=== PATIENT | female | born 1945 | race African-American/Black ===

== ENCOUNTER 2019-06-24 07:32 | Emergency (ER) | payer SELFPAY ==
[2019-06-24] MEDS ORDERED: ONDANSETRON 4 MG TAB.RAPDIS PO ONE (09:34)
--- NOTE | 2019-06-24 09:39 | ER Document Report ---
ED General - General Chief Complaint: Diarrhea Stated Complaint: ABDOMINAL PAIN Time Seen by Provider: 06/24/19 09:18 Primary Care Provider: VLADIMIR TORO MD [Primary Care Provider] - Follow up as needed Mode of Arrival: Ambulatory Information source: Patient TRAVEL OUTSIDE OF THE [place] IN LAST 30 DAYS: No - HPI Onset: Other - over the last 5 days Onset/Duration: Gradual Quality of pain: Cramping Severity: Mild Pain Level: 1 Associated symptoms: Diarrhea, Nausea, Other - Abdominal Pain Exacerbated by: Denies Relieved by: Denies Similar symptoms previously: No Recently seen / treated by doctor: No Notes: 74 year old female with a history of DM and HTN who has been off her Metformin and Losartan/HCTZ for about a month here for nausea, abdominal cramps, and diarrhea since starting back her medications over the last week. The patient denies fevers, chills, sweats, vomiting, sick contacts, ingestion of uncooked foods, or recent travel outside the [place]. - Related Data Allergies/Adverse Reactions: No Known Allergies Allergy (Verified 06/24/19 07:50) Past Medical History - General Information source: Patient - Social History Smoking Status: Never Smoker Frequency of alcohol use: None Drug Abuse: None Family History: Reviewed & Not Pertinent Patient has suicidal ideation: No Patient has homicidal ideation: No - Past Medical History Cardiac Medical History: Reports: Hx Hypertension Endocrine Medical History: Reports: Hx Diabetes Mellitus Type 1 Review of Systems - Review of Systems Constitutional: No symptoms reported EENT: No symptoms reported Cardiovascular: No symptoms reported Respiratory: No symptoms reported Gastrointestinal: Abdominal pain, Diarrhea, Nausea Genitourinary: No symptoms reported Female Genitourinary: No symptoms reported Musculoskeletal: No symptoms reported Skin: No symptoms reported Hematologic/Lymphatic: No symptoms reported Neurological/Psychological: No symptoms reported Physical Exam - Vital signs Vitals: Temp Pulse Resp BP Pulse Ox 98.4 F 69 18 168/116 H 100 06/24/19 07:43 06/24/19 07:43 06/24/19 07:43 06/24/19 07:43 06/24/19 07:43 - Notes Notes: GENERAL: Well-appearing, well-nourished and in no acute distress. HEAD: Atraumatic, normocephalic. EYES: Pupils equal round and reactive to light, extraocular movements intact, sclera anicteric, conjunctiva are normal. ENT: TMs normal, nares patent, oropharynx clear without exudates. Moist mucous membranes. NECK: Normal range of motion, supple without lymphadenopathy or JVD. LUNGS: Breath sounds clear to auscultation bilaterally and equal. No wheezes rales or rhonchi. HEART: Regular rate and rhythm without murmurs, rubs or gallops. ABDOMEN: Soft, nontender, normoactive bowel sounds. No guarding, no rebound. No masses appreciated. EXTREMITIES: Normal range of motion, no pitting or edema. No clubbing or cyanosis. NEUROLOGICAL: Cranial nerves II through XII grossly intact. Normal speech, normal gait. PSYCH: Normal mood, normal affect. SKIN: Warm, Dry, normal turgor, no rashes or lesions noted. Course - Re-evaluation Re-evalutation: 06/24/19 09:37 The patient is here for nausea, abdominal cramping, and diarrhea in the setting of starting back on Metformin and Losartan/HCTZ. The patient looks well here in the ER and she says she only has some imld nausea at the moment. She has no abdominal tenderness on exam. Patient's POC glucose is 121. Will treat patient with ODT zofran. She was told this is likely a side effect of metformin although a viral illness is also possible. 06/24/19 09:42 Patient's BP was high in the ER but the patient admits she has not been taking her newly prescribed Losartan/HCTZ. She was told to start back today. - Vital Signs Vital signs: Temp Pulse Resp BP Pulse Ox 98.4 F 69 18 168/116 H 100 06/24/19 07:43 06/24/19 07:43 06/24/19 07:43 06/24/19 07:43 06/24/19 07:43 Discharge - Discharge Clinical Impression: Nausea Diarrhea Qualifiers: Diarrhea type: unspecified type Qualified Code(s): R19.7 - Diarrhea, unspecified Disposition: HOME, SELF-CARE Instructions: Abdominal Pain ([facility]), Diarrhea, Nonspecific ([facility]), Nausea or Vomiting, Nonspecific ([facility]) Additional Instructions: Eat a bland diet until your symptoms improve. Use Zofran as needed for nausea, Follow up with your primary care doctor. Prescriptions: Ondansetron [Zofran Odt 4 mg Tablet] 1 tab PO Q8H PRN #15 tab.rapdis PRN Reason: For Nausea/Vomiting Referrals: VLADIMIR TORO MD [Primary Care Provider] - Follow up as needed
[2019-06-24 10:14] VITALS: BP 160/104
== END 2019-06-24 10:16 | disposition home or self-care (01) ==
LOC: ER 07:32
DX: R11.0 Nausea (principal); R19.7 Diarrhea, unspecified; R10.9 Unspecified abdominal pain; Z79.84 Long term (current) use of oral hypoglycemic drugs; Z79.899 Other long term (current) drug therapy; I10 Essential (primary) hypertension; E10.9 Type 1 diabetes mellitus without complications
CPT/HCPCS: 99284; 82962; S0119

== ENCOUNTER 2020-04-04 17:47 | Emergency (ER) | payer SELFPAY ==
--- NOTE | 2020-04-04 18:14 | ER Document Report ---
ED Medical Screen (RME) - General Chief Complaint: Dizziness Stated Complaint: DIZZINESS Time Seen by Provider: 04/04/20 18:05 Primary Care Provider: VLADIMIR TORO MD [Primary Care Provider] - Follow up as needed Mode of Arrival: Wheelchair Information source: Patient, Relative - Daughter Notes: 75-year-old female patient presents emergency department chief complaint of onset of generalized weakness and dizziness. 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 She thinks she may have overworked herself. She denies any chest pain or shortness of breath. The episode occurred right before arrival. She states she still does not feel well. She denies any unilateral weakness. Patient alert, oriented, answering all questions appropriately. No focal neurological deficits on exam. I have greeted and performed a rapid initial assessment of this patient. A comprehensive ED assessment and evaluation of the patient, analysis of test results and completion of the medical decision making process will be conducted by additional ED providers. I have specifically instructed the patient or family members with the patient to immediately return to any nursing staff should anything change in the patient's condition or with their chief complaint. TRAVEL OUTSIDE OF THE [place] IN LAST 30 DAYS: No - Related Data Allergies/Adverse Reactions: Penicillins Allergy (Verified 04/04/20 18:11) Past Medical History - Past Medical History Cardiac Medical History: Reports: Hx Hypertension Endocrine Medical History: Reports: Hx Diabetes Mellitus Type 1 Physical Exam - Vital signs Vitals: Temp Pulse Resp BP Pulse Ox 97.7 F 58 L 18 151/67 H 100 04/04/20 18:04/04/20 18:01 04/04/20 18:01 04/04/20 18:01 04/04/20 18:01 Course - Vital Signs Vital signs: Temp Pulse Resp BP Pulse Ox 97.7 F 58 L 18 151/67 H 100 04/04/20 18:01 04/04/20 18:01 04/04/20 18:01 04/04/20 18:01 04/04/20 18:01 Doctor's Discharge - Discharge Referrals: VLADIMIR TORO MD [Primary Care Provider] - Follow up as needed
--- NOTE | 2020-04-04 18:42 | RADIOLOGY REPORT (SQ) ---
EXAM DESCRIPTION: CHEST SINGLE VIEW IMAGES COMPLETED DATE/TIME: 04/04/2020 6:21 pm REASON FOR STUDY: weakness COMPARISON: None. EXAM PARAMETERS: NUMBER OF VIEWS: One view. TECHNIQUE: Single frontal radiographic view of the chest acquired. RADIATION DOSE: NA LIMITATIONS: None. FINDINGS: LUNGS AND PLEURA: No consolidation, pneumothorax or pleural effusion. MEDIASTINUM AND HILAR STRUCTURES: No masses. Contour normal. HEART AND VASCULAR STRUCTURES: Heart normal in size. Normal vasculature. BONES: No acute findings. HARDWARE: None in the chest. OTHER: There is elevation of the left hemidiaphragm. An air-fluid level is noted at the stomach. IMPRESSION: 1. No acute radiographic finding in the chest. 2. Elevation of the left hemidiaphragm. Air-fluid level at the stomach. TECHNICAL DOCUMENTATION: JOB ID: [id number] 2010 [employer]- All Rights Reserved Reading location - IP/workstation name: [email or web address]
[2020-04-04 18:55] LABS: ABSOLUTE LYMPHOCYTES (AUTO) 1.7 10^3/uL (0.5-4.7); ABSOLUTE MONOCYTES (AUTO) 0.4 10^3/uL (0.1-1.4); ABSOLUTE NEUT (AUTO) 4.1 10^3/uL (1.7-8.2); BASOPHILS % (AUTO) 0.3 % (0-2); EOSINOPHILS % (AUTO) 0.5 % (0-6); HEMATOCRIT 33.9 % (36.0-47.0); HEMOGLOBIN 11.2 g/dL (12.0-15.5); LYMPHOCYTES % (AUTO) 27.4 % (13-45); MEAN CORPUSCULAR HEMOGLOBIN 28.1 pg (27.0-33.4); MEAN CORPUSCULAR VOLUME 85 fl (80-97); MONOCYTES % (AUTO) 6.2 % (3-13); PLATELET COUNT 183 10^3/uL (150-450); RED BLOOD COUNT 3.99 10^6/uL (3.72-5.28); SEGMENTED NEUTROPHILS % (AUTO) 65.6 % (42-78); TOTAL CELLS COUNTED % (AUTO) 100 %; WHITE BLOOD COUNT 6.3 10^3/uL (4.0-10.5)
[2020-04-04 19:21] LABS: ALBUMIN 4.6 g/dL (3.5-5.0); ALKALINE PHOSPHATASE 54 U/L (38-126); ANION GAP 12 (5-19); ASPARTATE AMINO TRANSFERASE 26 U/L (14-36); BILIRUBIN,DIRECT 0.2 mg/dL (0.0-0.4); BILIRUBIN,TOTAL 0.5 mg/dL (0.2-1.3); BLOOD UREA NITROGEN 23 mg/dL (7-20); CALCIUM 9.6 mg/dL (8.4-10.2); CARBON DIOXIDE 28 mmol/L (22-30); CHLORIDE 98 mmol/L (98-107); GLUCOSE 163 mg/dL (75-110); POTASSIUM 3.6 mmol/L (3.6-5.0); TOTAL PROTEIN 8.2 g/dL (6.3-8.2)
[2020-04-04 21:01] LABS: APPEARANCE,URINE CLEAR; BILIRUBIN,URINE NEGATIVE (NEGATIVE); COLOR,URINE YELLOW; GLUCOSE, URINE NEGATIVE (NEGATIVE); KETONES,URINE NEGATIVE (NEGATIVE); PROTEIN,URINE NEGATIVE (NEGATIVE); URINE SPECIFIC GRAVITY 1.016
--- NOTE | 2020-04-04 22:02 | ER Document Report ---
Entered by ANNEL DUGAN SCRIBE 04/04/20 [id number] Acting as scribe for:RADHA BAUER, DO ED General - General Chief Complaint: General Weakness Stated Complaint: DIZZINESS Time Seen by Provider: 04/04/20 18:05 Primary Care Provider: VLADIMIR TORO MD [Primary Care Provider] - 04/05/20 Mode of Arrival: Wheelchair Information source: Patient Notes: This 75-year-old female patient presents to the emergency department today with complaints of generalized weakness for the last few days. Daughter at bedside reports that her and another family member were installing a new washer when the patient "put her head down between her legs". Daughter at bedside reports that the patient "looks like she had passed out but she was able to answer her and all her questions appropriately". Daughter reports that the patient had a BGL of 122 and a pressure of 99/65 after this event occurred. Patient tried to stand up and felt generally weak on her feet but denies any focal neurological deficits. Patient denies any chest pain, shortness of breath, sick contacts, or feeling ill leading up to today. TRAVEL OUTSIDE OF THE [place] IN LAST 30 DAYS: No - Related Data Allergies/Adverse Reactions: Penicillins Allergy (Verified 04/04/20 18:11) Home Medications: metformin, losartan-hctz Past Medical History - General Information source: Patient, Relative - Daughter - Social History Smoking Status: Never Smoker Cigarette use (# per day): No Chew tobacco use (# tins/day): No Frequency of alcohol use: None Drug Abuse: None Lives with: Family Family History: Reviewed & Not Pertinent - Past Medical History Cardiac Medical History: Reports: Hx Hypertension Endocrine Medical History: Reports: Hx Diabetes Mellitus Type 2 Past Surgical History: Reports: Hx Hysterectomy Review of Systems - Review of Systems Constitutional: See HPI, Weakness EENT: No symptoms reported Cardiovascular: See HPI, Syncope - near. denies: Chest pain Respiratory: denies: Short of breath Gastrointestinal: No symptoms reported Genitourinary: No symptoms reported Female Genitourinary: No symptoms reported Musculoskeletal: No symptoms reported Skin: No symptoms reported Hematologic/Lymphatic: No symptoms reported Neurological/Psychological: No symptoms reported -: Yes All other systems reviewed and negative Physical Exam - Vital signs Vitals: Temp Pulse Resp BP Pulse Ox 97.7 F 58 L 18 151/67 H 100 04/04/20 18:01 04/04/20 18:01 04/04/20 18:01 04/04/20 18:01 04/04/20 18:01 - Notes Notes: Physical Exam: General: Alert, appears well. HEENT: Normocephalic. Atraumatic. PERRL. Extraocular movements intact. Oropharynx clear. Neck: Supple. Non-tender. Respiratory: No respiratory distress. Clear and equal breath sounds bilaterally. Cardiovascular: Regular rate and rhythm. Abdominal: Normal Inspection. Non-tender. No distension. Normal Bowel Sounds. Back: No gross abnormalities. Extremities: Moves all four extremities. Upper extremities: Normal inspection. Normal ROM. Lower extremities: Normal inspection. No edema. Normal ROM. Neurological: Normal cognition. AAOx4. Normal speech. Psychological: Normal affect. Normal Mood. Skin: Warm. Dry. Normal color. Course - Re-evaluation Re-evalutation: 04/04/20 23:50 MDM 74 year old female arrives with episode of generalized weakness earlier today while doing work at home - no fever or chills or covid exposure or chest pain or sob. She understands the importance of follow up and we discussed she may need a stress test in follow up. She also understands return here precautions. - Vital Signs Vital signs: Temp Pulse Resp BP Pulse Ox 97.7 F 58 L 18 151/67 H 100 04/04/20 18:01 04/04/20 18:01 04/04/20 18:01 04/04/20 18:01 04/04/20 19:54 - Laboratory Result Diagrams: 04/04/20 18:35 04/04/20 18:35 Laboratory results interpreted by me: 04/04/20 04/04/20 04/04/20 18:35 18:35 20:42 Hgb 11.2 L Hct 33.9 L BUN 23 H Est GFR (MDRD) Non-Af 51 L Glucose 163 H Urine Urobilinogen 2.0 H - Diagnostic Test Radiology reviewed: Image reviewed, Reports reviewed - EKG Interpretation by Me EKG shows normal: Sinus rhythm Rate: Normal Rhythm: NSR - NSR NL Emm[place] [address] elevation or depression Diffuse repol arization abnormality across precordium without previous to compare. Discharge - Discharge Clinical Impression: Near syncope, Weakness, Hyperglycemia Condition: Stable Disposition: HOME, SELF-CARE Instructions: Diabetes ([facility]), Dizziness ([facility]), High Blood Pressure ([facility]), Weakness ([facility]) Additional Instructions: See your doctor in follow up. Call them later today. Return here for chest pain, shortness of breath or any other problems or concerns. Take your regular medicines as directed. Your blood sugar was elevated just a bit. Be sure and have that rechecked and follow your diabetic diet. Take 2 baby aspirin daily by mouth. Referrals: VLADIMIR TORO MD [Primary Care Provider] - 04/05/20 I personally performed the services described in the documentation, reviewed and edited the documentation which was dictated to the scribe in my presence, and it accurately records my words and actions.
[2020-04-05 00:09] VITALS: BP 126/75
--- NOTE | 2020-04-05 05:28 | EKG REPORT ---
SEVERITY:- BORDERLINE ECG - SINUS RHYTHM BORDERLINE T ABNORMALITIES, DIFFUSE LEADS : Confirmed by: Hira Harris MD 05-Apr-2020 05:27:08
== END 2020-04-05 00:51 | disposition home or self-care (01) ==
LOC: ER 17:47
DX: E11.65 Type 2 diabetes mellitus with hyperglycemia (principal); R55 Syncope and collapse; R53.1 Weakness; I10 Essential (primary) hypertension; Z79.84 Long term (current) use of oral hypoglycemic drugs; Z79.899 Other long term (current) drug therapy; Z88.0 Allergy status to penicillin
CPT/HCPCS: 36415; 71045; 80053; 81001; 83735; 84484; 85025; 93005; 93010; 99285